=== PATIENT | male | born 1975 | race Caucasian/White ===

== ENCOUNTER 2017-07-22 15:06 | Emergency (ER) | payer MEDICAID ==
[2017-07-22 15:10] VITALS: BP 165/90; BMI 30.1
--- NOTE | 2017-07-22 17:05 | DR.GENAD ---
HPI - PCP Primary Care Physician: WALKER WELDON - Complaint/Symptoms Chief Complaint Doctors Comments: Patient states that he has a nodule on his left inner thing that is painful. The lesion has been there for about two weeks. He admits to putting some "drawing" ointment but it has not helped. Chief Complaint:: PATIENT HAS A ABCESS TO LEFT LEG THAT IS THE SIZE OF A GOLF BALL. THIS HAS BEEN THERE 2 WEEKS. - Source History Provided: Patient - Mode of Arrival Mode of Arrival: Ambulatory - Timing Onset of Chief Complaint: 07/08/17 PMH - PMH Past Medical History: Yes Past Medical History: Anxiety, Depression, Seizures Past Surgical History: Yes Surgical History: Appendectomy - Family History History of Family Medical Conditions: Yes Family Medical History: Diabetes Mellitus, Cancer, [place], Coronary Artery Disease, Hypertension - Social History Does patient currently use any type of tobacco product: No Have you used tobacco products in the last 12 months: No Type of Tobacco Use: None Does any household member use tobacco: No Alcohol Use: None Do you use any recreational Drugs:: No Lives With: Family Lives Where: Home - infectious screening In the last 2 months have you had wt loss of >10#?: NO Have you had fever, night sweats or hemotysis?: No Have you traveled outside the country in the last 6 months?: No Isolation: Standard ROS - Review of Systems Constitutional: No Symptoms Reported Eyes: No Symptoms Reported ENTM: No Symptoms Reported Respiratoy: No Symptoms Reported Cardiovascular: No Symptoms Reported Gastrointestinal/Abdominal: No Symptoms Reported Genitourinary: No Symptoms Reported Neurological: No Symptoms Reported Musculoskeletal: No Symptoms Reported Integumentary: Lesions (noduel left inner thigh) Hematologic/Lymphatic: No Symptoms Reported Endocrine: No Symptoms Reported Psychiatric: No Symptoms Reported All Other Systems: Reviewed and Negative PE - Vital Signs Vitals: Temperature 98.7 F Pulse Rate 81 Respiratory Rate 20 Blood Pressure 165/90 O2 Sat by Pulse Oximetry 99 - General Limitations: No Limitations General Appearance: Alert, In No Apparent Distress - Head Head Exam: Normal Inspection, Atraumatic - Eyes Eye exam: Normal Appearance, PERRL, EOMI - ENT ENT Exam: Normal Exam External Ear Exam: Normal External Inspection TM/Canal Exam: Bilateral Normal Nose Exam: Normal Nose Exam Mouth Exam: Normal Inspection Throat Exam: Normal Inspection - Neck Neck Exam: Normal Inspection, Full ROM - Chest Chest Inspection: Normal Inspection - Respiratory Respiratory Exam: Normal Lung Sounds Bilat Respiratory Exam: Bilateral Clear to Auscultation - Cardiovascular Cardiovascular Exam: Regular Rate, Normal Rhythm - Abdominal Exam Abdominal Exam: Normal Inspection Abdominal Tenderness: negative: RUQ, RLQ, LUQ, LLQ, Epigastrium, Suprapubic, Diffuse, Mild, Moderate, Severe, Other - Extremities Extremities Exam: Normal Inspection - Back Back Exam: Normal Inspection - Neurologic Neurological Exam: Alert, Oriented X3, CN II-XII Intact - Psychiatric Psychiatric Exam: Normal Affect - Skin Skin Exam: Warm, Dry, Intact, Other (a tender non etythematous nodule left inner thigh near) - Other Exam Other Exam: with in normal limits - Diagnosis Discharge Problem: Carbuncle - Discharge Plan Condition: Stable - Follow ups/Referrals Follow ups/Referrals: RONDA WELDON [Primary Care Provider] - 3 days - Instructions
== END 2017-07-22 17:20 | disposition home or self-care (01) ==
LOC: ER 15:15
DX: L02.93 Carbuncle, unspecified (principal)
CPT/HCPCS: 99281; 99282